=== PATIENT | male | born 1930 | race Caucasian/White ===

== ENCOUNTER → 2017-05-24 | Outpatient (CLI) | payer MEDICARE, OTHER ==
[~2017-05-24] MED LIST: CPAP INH; DELTASONE5 MG PO; LYRICA 150MG C150 MG PO; OXYGEN M-15 INH; PRESERVISION L1 EACH PO; TAB-A-VITE1 EACH PO; TUMS REGULAR ST1 TAB PO; ULTRAM50 MG PO; ZYLOPRIM100 MG PO
== END | disposition disaster alternative care site (69) ==
LOC: GKIC 10:30 → GRAD 10:30
DX: M54.9 Dorsalgia, unspecified (principal)

== ENCOUNTER → 2017-05-29 | Outpatient (CLI) | payer MEDICARE, OTHER ==
--- NOTE | ~2017-05-29 | ENPV ---
Vascular Lower Extremities Arterial Duplex and Lower Arterial Plethysmography Procedure Demographics Patient Name XIAO GROSSMAN V Date of Study 05/29/2017 Patient Number [id number] Gender Male Date of 1930 Age 86 Visit Number [id number] Height Accession Number [id number] Weight Room Number BSA BMI Referring Fabio Noble MD Interpreting Mehran Macario MD Physician Physician Physician Ordering Physician Fabio Noble MD [employer] Christine Kerr RDCS, RVT Paulo Glover BS, RT Conclusions Summary Ankle brachial index on the right is .93 no significant arterial disease at rest. Ankle brachial index on the left is 1.17 no significant arterial disease at rest. 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 Procedure Type of Study: Extremities Arteries:Lower Extremities Arterial Duplex, Arterial Duplex Lower Extremity Bilateral, Lower Arterial Plethysmography, Ankle/Brachial Indicies. Indications for Study:Numbness and tingling feet. Additional Indications:Decreased pulses Patient Status:Routine. Study Location:Inpatient Portable. Technical Quality:Adequate visualization. Velocities are measured in cm/s ; Diameters are measured in cm Pressures + ++--------+-----+----+--------+-----+ ! !!Right ! !Left! ! ! + ++--------+-----+----+--------+-----+ !Location !!Pressure!Ratio! !Pressure!Ratio! + ++--------+-----+----+--------+-----+ !Ankle PT !!146 !0.93 ! ! ! ! + ++--------+-----+----+--------+-----+ !DP !! ! ! !183 !1.17 ! + ++--------+-----+----+--------+-----+ !Great Toe !!107 !0.68 ! !106 !0.68 ! + ++--------+-----+----+--------+-----+ - Brachial Pressure:Right: 150.Left:157. - SHARITA:Right: 0.93.Left: 1.17. Plethysmographic Digit Evaluation +---------++--------+-----+ ++--------+-----+ + ! !!Right ! !Left !! ! ! ! +---------++--------+-----+ ++--------+-----+ + !Location !!Pressure!Ratio!PPG Wave Form !!Pressure!Ratio!PPG Wave Form ! +---------++--------+-----+ ++--------+-----+ + !Great Toe!!107 !0.68 ! !!106 !0.68 ! ! +---------++--------+-----+ ++--------+-----+ + Velocities are measured in cm/s ; Diameters are measured in cm LE Duplex Measurements + ++-----+ +----+---+ + ! !!Right! !Left! ! ! + ++-----+ +----+---+ + !Location !!PSV !Wave Desc.! !PSV!Wave Desc.! + ++-----+ +----+---+ + !Dist EIA !!93 !Triphasic ! !82 !Triphasic ! + ++-----+ +----+---+ + !Femoral !!100 !Triphasic ! !91 !Triphasic ! + ++-----+ +----+---+ + !PFA !!87 !Triphasic ! !119!Triphasic ! + ++-----+ +----+---+ + !Prox SFA !!98 !Triphasic ! !91 !Triphasic ! + ++-----+ +----+---+ + !Mid SFA !!120 !Triphasic ! !108!Triphasic ! + ++-----+ +----+---+ + !Dist SFA !!92 !Triphasic ! !84 !Triphasic ! + ++-----+ +----+---+ + !Prox Popliteal !!88 !Triphasic ! !94 !Triphasic ! + ++-----+ +----+---+ + !Mid Popliteal !!90 !Triphasic ! !97 !Triphasic ! + ++-----+ +----+---+ + !Dist Popliteal !!71 !Triphasic ! !51 !Biphasic ! + ++-----+ +----+---+ + !Prox AMORTIZATION CLERK !!45 !Biphasic ! !57 !Biphasic ! + ++-----+ +----+---+ + !Mid AMORTIZATION CLERK !!35 !Biphasic ! !13 !Monophasic! + ++-----+ +----+---+ + !Dist AMORTIZATION CLERK !!25 !Biphasic ! !25 !Monophasic! + ++-----+ +----+---+ + !Prox URIEL !!46 !Monophasic! !41 !Biphasic ! + ++-----+ +----+---+ + !Mid URIEL !!30 !Monophasic! !23 !Biphasic ! + ++-----+ +----+---+ + !Dist URIEL !! !Monophasic! !31 !Biphasic ! + ++-----+ +----+---+ + !DP !!46 !Monophasic! !31 !Monophasic! + ++-----+ +----+---+ + !Prox Peroneal !!56 !Monophasic! !57 !Monophasic! + ++-----+ +----+---+ + !Mid Peroneal !!43 !Monophasic! !52 !Monophasic! + ++-----+ +----+---+ + !Dist Peroneal !!56 !Monophasic! !37 !Monophasic! + ++-----+ +----+---+ + Signature dtt: FRANK HENDRICKS dtd: 05/29/17 1415 Physician Self Edit
== END | disposition disaster alternative care site (69) ==
LOC: GPOC 05-24 14:00
DX: M48.06 Spinal stenosis, lumbar region (principal); M48.04 Spinal stenosis, thoracic region; M48.05 Spinal stenosis, thoracolumbar region; M53.2X7 Spinal instabilities, lumbosacral region; M47.892 Other spondylosis, cervical region; R09.89 Other specified symptoms and signs involving the circulatory and respiratory systems; Z88.2 Allergy status to sulfonamides; Z88.8 Allergy status to other drugs, medicaments and biological substances; Z98.1 Arthrodesis status